=== PATIENT | male | born 2000 | race Caucasian/White ===

== ENCOUNTER 2021-02-24 17:04 | Emergency (ER) | payer BC ==
[2021-02-24 21:19] LABS: HEMOGLOBIN 14.6 gm/dl (14.0-17.5); RED BLOOD COUNT 4.82 M/UL (4.20-5.50); WHITE BLOOD COUNT 3.5 K/UL (4.5-11.0)
[2021-02-24 21:56] LABS: BUN/CREATININE RATIO 6 (0-10)
[2021-02-24] MEDS ORDERED: BUTALB-ACETAMI1 EAC1 PO (23:11)
== END 2021-02-24 23:20 | disposition home or self-care (01) ==
LOC: ER1 17:04
PROVIDERS: Family Medicine
DX: G43.909 Migraine, unspecified, not intractable, without status migrainosus (principal); F17.290 Nicotine dependence, other tobacco product, uncomplicated; Z88.8 Allergy status to other drugs, medicaments and biological substances
CPT/HCPCS: 70450; 80053; 82550; 82553; 83874; 84484; 85025; 85652; 86140; 99284